=== PATIENT | female | born 1985 | race Caucasian/White ===

== ENCOUNTER 2023-05-10 11:25 | Emergency (ER) | payer OTHER, SELFPAY ==
[2023-05-10 11:29] VITALS: BP 105/79; PULSE 69; RESP 16; TEMP 36.7; O2SAT 99; BMI 30.7
[2023-05-10 11:41] LABS: Bilirubin Urine NEGATIVE (NEGATIVE); Blood Urine NEGATIVE (NEGATIVE); Clarity Urine CLEAR (CLEAR); Color Urine LT. YELLOW (YELLOW); Glucose Urine UA NEGATIVE (NEGATIVE); Ketones Urine NEGATIVE (NEGATIVE); Leukocyte Esterase Urine SMALL (NEGATIVE); Nitrite Urine NEGATIVE (NEGATIVE); Protein Urine NEGATIVE (NEG/TRACE); Specific Gravity Urine 1.015 (1.005-1.025); Urobilinogen Urine 0.2 EU/dL (0.2-1.0)
[2023-05-10 11:43] LABS: Urine Microscopic Indicated YES
[2023-05-10 11:47] LABS: Bacteria Urine NONE SEEN #/HPF (NONE SEEN); Cast Seen? NONE SEEN #/LPF (NONE SEEN); Crystals Seen? None Seen #/HPF (None Seen); Mucus Urine NONE SEEN (NONE SEEN); RBC Urine NONE SEEN #/HPF (0-2); Squamous Epithelial Cell Urine FEW #/LPF (NONE/RARE); Urine Culture Indicated NO; WBC Urine 0-2 #/HPF (NONE SEEN)
--- NOTE | 2023-05-10 12:03 | ED_ITS ---
HPI - Female Genitourinary General Chief complaint: Urogenital-Female Stated complaint: FREQ. URINATION/HURTS TO URINATE/TONGUE PAIN Time Seen by Provider: 05/10/23 11:31 Source: patient Mode of arrival: walk-in Limitations: no limitations History of Present Illness HPI Narrative: This document has been composed with a new electronic medical record and dragging voice recognition system. This document may not fully inaccurately reflect the entirety of the patient encounter.this patient presents emergency room with frequency and urgency of urination. Symptoms started yesterday. She is going frequently but very small amounts. She has not seen any blood. No history of back or flank pain. No history kidney stones. She has no nausea or vomiting. She's not had a recent infection. She has no other gynecological complaints today. She's not had a urinary infection for at least several years. She also has some swelling and inflammation of her tongue. She started taking a multiple vitamin several months ago when she had a leg fracture. She is not on any other new medication hormones or other treatments. She says it flowers low but when she eats. She does not have a sore throat it's only the dorsal surface of the tongue with some valve. Related Data Home Medications Medication Instructions Recorded Confirmed No Known Home Medications 05/10/23 05/10/23 Allergies Allergy/AdvReac Type Severity Reaction Status Date / Time No Known Drug Allergies Allergy Verified 05/10/23 11:32 Exam Narrative Exam Narrative: patient's vital signs are noted and are normal. She is very pleasant happy healthy appears in no distress an excellent historian Problem focused examination shows a mild to has some prominence of the tongue consistent with a glossitis/geographic tongue. There is no deep fissures. There is no ulcerations vesicles or singular lesions it's rather nonspecific throughout the dorsal surface and lateral border. Otherwise ENT examination is normal. Constitutional Vital Signs, click to edit/add: Last Vital Signs Temp 98.0 F 05/10/23 11:29 Pulse 69 05/10/23 11:29 Resp 16 05/10/23 11:29 BP 105/79 05/10/23 11:29 Pulse Ox 99 05/10/23 11:29 O2 Del Method Room Air 05/10/23 11:29 Course Vital Signs Vital signs: Vital Signs Temperature 98.0 F 05/10/23 11:29 Pulse Rate 69 05/10/23 11:29 Respiratory Rate 16 05/10/23 11:29 Blood Pressure 105/79 05/10/23 11:29 Pulse Oximetry 99 05/10/23 11:29 Oxygen Delivery Method Room Air 05/10/23 11:29 Temperature 98.0 F 05/10/23 11:29 Pulse Rate 69 05/10/23 11:29 Respiratory Rate 16 05/10/23 11:29 Blood Pressure 105/79 05/10/23 11:29 Pulse Oximetry 99 05/10/23 11:29 Oxygen Delivery Method Room Air 05/10/23 11:29 MDM - Female Genitourinary MDM Narrative Medical decision making narrative: patient presents with classic urinary symptoms of urinary tract infection. Her urine is consistent with that. We'll place her on Keflex, cluck cranberry tablets increasing fluids. I would like her to stop taking the multiple vitamin for now and consider oral antihistamine for five days. She can follow up with ENT if symptoms not improve Lab Data Labs: Lab Results 05/10/23 Range/Units 11:30 Urine Color Lt. yellow (YELLOW) Urine Clarity Clear (CLEAR) Urine pH 7.0 (5.0-9.0) Ur Specific [place] 1.015 (1.005-1.025) Urine Protein Negative (NEG/TRACE) mg/dL Urine Glucose (UA) Negative (NEGATIVE) mg/dL Urine Ketones Negative (NEGATIVE) mg/dL Urine Occult Blood Negative (NEGATIVE) Urine Nitrite Negative (NEGATIVE) Urine Bilirubin Negative (NEGATIVE) Urine Urobilinogen 0.2 (0.2-1.0) EU/dL Ur Leukocyte Esterase Small A (NEGATIVE) Urine RBC None seen (0-2) #/HPF Urine WBC 0-2 A (NONE SEEN) #/HPF Ur Squamous Epith Cells Few A (NONE/RARE) #/LPF Urine Crystals None seen (None Seen) #/HPF Urine Bacteria None seen (NONE SEEN) #/HPF Urine Casts None seen (NONE SEEN) #/LPF Urine Mucus None seen (NONE SEEN) Ur Culture Indicated? No Discharge Plan Discharge Chief Complaint: Urogenital-Female Clinical Impression: Urinary tract infection Patient Disposition: Home, Self-Care Time of Disposition Decision: 12:05 Prescriptions / Home Meds: No Action No Known Home Medications Additional Instructions: Keflex/cranberry tablets/plan the of fluids/oral antihistamines such as Benadryl as discussed/stop multiple vitamin Stand Alone Forms: Portal Instructions
== END 2023-05-10 12:14 | disposition home or self-care (01) ==
PROVIDERS: Emergency Provider Emergency Medicine Emergency Medical Services
DX: N39.0 Urinary tract infection, site not specified (principal); K14.1 Geographic tongue
CPT/HCPCS: 81001; 99283